=== PATIENT | female | born 1985 | race Caucasian/White ===

== ENCOUNTER 2018-07-05 17:19 | Emergency (ER) | payer MEDICAID ==
[~2018-07-05] VITALS: Ht 165.1 cm; Wt 72.6 kg
[2018-07-05 17:37] VITALS: BP 112/75
--- NOTE | 2018-07-05 17:43 | Emergency Room Report ---
History of Present Illness General Chief Complaint: Medication Refill Source: Patient Present Illness HPI 33-year-old female presents emergency department requesting medication refills for 3 of her psychiatric medications. Patient reports taking Vistaril, Abilify as well as Lovenox for her OCD. Patient reports she ran out of her medication 3 days ago. Patient reports that she is currently searching for a primary care provider as she had change in insurance/moving. Patient denies SI, HI, delusions, hallucinations, drug use, PSA or previous psych hospital admissions. Allergies: Coded Allergies: BENZODIAZEPINES (Verified Allergy, Unknown, 07/05/18) Patient History Past Medical History: see triage record, psych hx Past Surgical History: none Pertinent Family History: none Last Menstrual Period: 3 weeks ago Now: No Reviewed Nursing Documentation: PMH: Agreed; PSxH: Agreed Nursing Documentation-PMH Past Medical History: No History, Except For History Of Psychiatric Problem: Yes - OCD, anxiety Review of Systems All Other Systems: negative except mentioned in HPI Physical Exam Vital Signs Date Time Temp Pulse Resp B/P (MAP) Pulse Ox O2 Delivery O2 Flow Rate FiO2 07/05/18 17:37 98.7 76 16 112/75 98 Room Air 98.8 Sp02 EP Interpretation: reviewed, normal General Appearance: no apparent distress, alert, GCS 15, non-toxic Head: normocephalic, atraumatic ENT: hearing grossly normal, normal voice Neck: full range of motion Respiratory: lungs clear, normal breath sounds, speaking full sentences Cardiovascular #1: regular rate, rhythm Musculoskeletal: back normal, gait/station normal, normal range of motion, non- tender Neurologic: alert, oriented x3, responsive, motor strength/tone normal, sensory intact, normal gait, speech normal, grossly normal Psychiatric: judgement/insight normal, anxious Skin: normal color, no rash, warm/dry, well hydrated Lymphatic: no adenopathy Medical Decision Making PA Attestation Dr. Hoyos is my supervising physician whom pt. management has been discussed with. Diagnostic Impression: Primary Impression: Encounter for medication refill ER Course 33-year-old female presents emergency department requesting medication refills for 3 of her psychiatric medications. Patient reports taking Vistaril, Abilify as well as Lovenox for her OCD. Patient reports she ran out of her medication 3 days ago. Patient reports that she is currently searching for a primary care provider as she had change in insurance/moving. Patient denies SI, HI, delusions, hallucinations, drug use, PSA or previous psych hospital admissions. Ddx considered but are not limited to: drug seeking, OD, need for medication refill, acute psychosis Vital signs: are WNL, pt. is afebrile H&PE are most consistent with need for medication refill. ORDERS: none required at this time, the diagnosis is clinical ED INTERVENTIONS: None required at this time. DISCHARGE: At this time pt. is stable for d/c to home. Will provide printed patient care instructions, and any necessary prescriptions. Care plan and follow up instructions have been discussed with the patient prior to discharge. Last Vital Signs Date Time Temp Pulse Resp B/P (MAP) Pulse Ox O2 Delivery O2 Flow Rate FiO2 07/05/18 17:37 98.7 76 16 112/75 98 Room Air 98.8 Disposition: HOME, SELF-CARE Condition: Stable Scripts Fluvoxamine Maleate (FLUVOXAMINE MALEATE) 100 Mg Cap.er.24h 100 MG PO DAILY, #30 CAP Prov: Maine Humphrey 07/05/18 Hydroxyzine Pamoate (VISTARIL) 25 Mg Capsule 25 MG PO QHS, #30 CAP Prov: Maine Humphrey 07/05/18 Aripiprazole* (ABILIFY*) 2 Mg Tablet 2 MG ORAL DAILY, #30 TAB Prov: Maine Humphrey 07/05/18 Patient Instructions: Medicine Refill at the Emergency Department Additional Instructions: Take medications as directed. Follow up with a Primary Care Provider in 3-5 days, even if your symptoms have resolved. --Please review list of primary care clinics, if you do not already have a primary care provider Return sooner to ED if new symptoms occur, or current symptoms become worse. Do not drink alcohol, drive, or operate heavy machinery while taking Vistaril as this may cause drowsiness. - Please note that this Emergency Department Report was dictated using [employer] technology software, occasionally this can lead to erroneous entry secondary to interpretation by the dictation equipment. Maine Humphrey Jul 05, 2018 17:43
[2018-07-05] MEDS ORDERED: VISTARIL25 M1 PO ×2 (17:45→17:53)
[2018-07-05] MEDS ORDERED: FLUVOXAMINE MA100 M1 PO ×2 (17:45→17:53)
[2018-07-05] MEDS ORDERED: ABILIFY2 MG ORAL ×2 (17:45→17:53)
[2018-07-05 17:59] VITALS: BP 112/75
== END 2018-07-05 18:00 | disposition home or self-care (01) ==
LOC: EMR 17:45
DX: Z76.0 Encounter for issue of repeat prescription (principal); Z88.8 Allergy status to other drugs, medicaments and biological substances; F41.9 Anxiety disorder, unspecified; F42.9 Obsessive-compulsive disorder, unspecified
CPT/HCPCS: 99283

== ENCOUNTER 2018-12-02 13:52 | Emergency (ER) | payer MEDICAID, OTHER ==
[~2018-12-02] VITALS: Ht 167.6 cm; Wt 73.9 kg
[~2018-12-02 13:52] MED LIST: ABILIFY2 MG ORAL; FLUVOXAMINE MA100 M1 PO; VISTARIL25 M1 PO
[2018-12-02 14:00] VITALS: BP 96/45
[2018-12-02] MEDS ORDERED: PRAZOSIN HCL1 MG PO (14:03)
[2018-12-02] MEDS ORDERED: BUSPIRONE HCL7.5 MG ORAL (14:03)
--- NOTE | 2018-12-02 14:20 | Emergency Room Report ---
History of Present Illness General Chief Complaint: Syncope Source: Patient Present Illness HPI Patient presents with reports of lapse of consciousness 2 times Reports that just prior to arrival here a possibly 1:00 she found herself on the ground Patient reports that she had gotten up to go to the kitchen and found herself on the ground near medication denies any symptoms prior to that denies any lightheadedness denies any weakness denies any chest pain or shortness of breath Patient has stopped all of her medications abruptly recently Denies any nausea or vomiting patient also had pain to the right ankle And reports that this episode happened back to back twice with the lapse of consciousness Allergies: Coded Allergies: BENZODIAZEPINES (Verified Allergy, Unknown, 07/05/18) Patient History Past Medical History: see triage record Pertinent Family History: none Last Menstrual Period: 11/2018 Now: No Reviewed Nursing Documentation: PMH: Agreed; PSxH: Agreed Nursing Documentation-PMH Past Medical History: No Stated History Review of Systems All Other Systems: negative except mentioned in HPI Physical Exam Vital Signs Date Time Temp Pulse Resp B/P (MAP) Pulse Ox O2 Delivery O2 Flow Rate FiO2 12/02/18 13:58 97.5 74 20 111/71 97 Room Air Sp02 EP Interpretation: reviewed, normal General Appearance: well appearing, no apparent distress Head: normocephalic, atraumatic Eyes: bilateral eye PERRL, bilateral eye EOMI ENT: hearing grossly normal, normal pharynx, TMs + canals normal, uvula midline Neck: full range of motion, supple, no meningismus, no bony tend Respiratory: lungs clear, normal breath sounds, no rhonchi, no respiratory distress, no retraction, no accessory muscle use Cardiovascular #1: normal peripheral pulses, regular rate, rhythm, no edema, no gallop, no JVD, no murmur Gastrointestinal: normal bowel sounds, non tender, soft, no mass, no organomegaly, non-distended, no guarding, no hernia, no pulsatile mass, no rebound Genitourinary: no CVA tenderness Musculoskeletal: other - Some swelling to her right lateral ankle Neurologic: oriented x3, responsive, datapower developer III-XII nml as tested, motor strength/ tone normal, sensory intact Psychiatric: mood/affect normal Skin: normal color, palpation normal, other - As noted above Lymphatic: normal inspection, no adenopathy Procedures Splinting Splinting : Consent: Verbal Location: Right ankle Pre-Made Type: velcro Splint: sugar-tong Pre-Proc Neuro Vasc Exam: normal Post-Proc Neuro Vasc Exam: normal Patient Tolerated: Well Complications: None Medical Decision Making Diagnostic Impression: Primary Impression: Syncope Additional Impression: Ankle fracture ER Course Patient is a fairly complex patient with multiple differential to consideration including but not limited to cardiac cardiopulmonary and vascular emergencies Patient's blood work is appropriate liver function was very minimally elevated X-ray imaging does show fibular fracture nondisplaced Patient had splint applied At this time the urine sample does show some infectious pathology however appears somewhat contaminated On repeat discussion patient denies any urinary symptoms therefore we will be pending further culture prior to any antibiotics Patient also requires close orthopedic follow-up for her right ankle Given the lapse of consciousness DMV report is filed and patient is aware that she is not allowed to drive until cleared by her primary physician/neurologist And stable for close outpatient follow-up Labs Test 12/02/18 14:30 12/02/18 15:15 White Blood Count 4.5 K/UL (4.8-10.8) Red Blood Count 4.91 M/UL (4.20-5.40) Hemoglobin 14.3 G/DL (12.0-16.0) Hematocrit 43.2 % (37.0-47.0) Mean Corpuscular Volume 88 FL (80-99) Mean Corpuscular Hemoglobin 29.1 PG (27.0-31.0) Mean Corpuscular Hemoglobin Concent 33.1 G/DL (32.0-36.0) Red Cell Distribution Width 11.4 % (11.6-14.8) Platelet Count 230 K/UL (150-450) Mean Platelet Volume 7.2 FL (6.5-10.1) Neutrophils (%) (Auto) 68.1 % (45.0-75.0) Lymphocytes (%) (Auto) 23.2 % (20.0-45.0) Monocytes (%) (Auto) 7.7 % (1.0-10.0) Eosinophils (%) (Auto) 0.5 % (0.0-3.0) Basophils (%) (Auto) 0.6 % (0.0-2.0) Sodium Level 137 MMOL/L (136-145) Potassium Level 3.6 MMOL/L (3.5-5.1) Chloride Level 102 MMOL/L (98-107) Carbon Dioxide Level 25 MMOL/L (21-32) Anion Gap 10 mmol/L (5-15) Blood Urea Nitrogen 10 mg/dL (7-18) Creatinine 0.9 MG/DL (0.55-1.30) Estimat Glomerular Filtration Rate > 60 mL/min (>60) Glucose Level 111 MG/DL (74-106) Calcium Level 9.1 MG/DL (8.5-10.1) Total Bilirubin 0.6 MG/DL (0.2-1.0) Aspartate Amino Transf (AST/SGOT) 40 U/L (15-37) Alanine Aminotransferase (ALT/SGPT) 82 U/L (12-78) Alkaline Phosphatase 61 U/L (46-116) Total Creatine Kinase 54 U/L (26-308) Creatine Kinase MB < 0.5 NG/ML (0.0-3.6) Creatine Kinase MB Relative Index 0.9 Total Protein 7.5 G/DL (6.4-8.2) Albumin 4.0 G/DL (3.4-5.0) Globulin 3.5 g/dL Albumin/Globulin Ratio 1.1 (1.0-2.7) Urine Color Yellow Urine Appearance Clear Urine pH 5 (4.5-8.0) Urine Specific [place] 1.025 (1.005-1.035) Urine Protein 2+ (NEGATIVE) Urine Glucose (UA) Negative (NEGATIVE) Urine Ketones 4+ (NEGATIVE) Urine Blood 3+ (NEGATIVE) Urine Nitrite Negative (NEGATIVE) Urine Bilirubin Negative (NEGATIVE) Urine Urobilinogen 1 MG/DL (0.0-1.0) Urine Leukocyte Esterase 1+ (NEGATIVE) Urine RBC 5-10 /HPF (0 - 2) Urine WBC 2-4 /HPF (0 - 2) Urine Squamous Epithelial Cells Moderate /LPF (NONE/OCC) Urine Amorphous Sediment Few /LPF (NONE) Urine Bacteria Moderate /HPF (NONE) Urine HCG, Qualitative Negative (NEGATIVE) Urine Opiates Screen Negative (NEGATIVE) Urine Barbiturates Screen Negative (NEGATIVE) Phencyclidine (PCP) Screen Negative (NEGATIVE) Urine Amphetamines Screen Negative (NEGATIVE) Urine Benzodiazepines Screen Negative (NEGATIVE) Urine Cocaine Screen Negative (NEGATIVE) Urine Marijuana (THC) Screen Negative (NEGATIVE) EKG Diagnostic Results Rate: normal Rhythm: NSR ST Segments: no acute changes Rhythm Strip Diag. Results EP Interpretation: yes Rate: 60 Rhythm: NSR, no PVC's, no ectopy Other X-Ray Diagnostic Results Other X-Ray Diagnostic Results : X-Ray ordered: Right ankle # of Views/Limited Vs Complete: 3 View Indication: Pain EP Interpretation: Yes Interpretation: no dislocation, no soft tissue swelling, other - Fracture distal fibula Impression: Other - Acute fractue Electronically Signed by: Karina Crews DO Last Vital Signs Date Time Temp Pulse Resp B/P (MAP) Pulse Ox O2 Delivery O2 Flow Rate FiO2 12/02/18 13:58 97.5 74 20 111/71 97 Room Air Status: improved Disposition: HOME, SELF-CARE Condition: Improved Scripts Ibuprofen* (MOTRIN*) 600 Mg Tablet 600 MG ORAL Q8H PRN for For Pain, #20 TAB 0 Refills Prov: Karina Crews DO 12/02/18 Additional Instructions: Patient is provided with the discharge instructions notified to follow up with primary doctor in the next 2-3 days otherwise return to the er with any worsening symptoms. Please note that this report is being documented using [employer] technology. This can lead to erroneous entry secondary to incorrect interpretation by the dictating instrument. Karina Crews DO Dec 02, 2018 14:20
[2018-12-02 14:35] LABS: BASOPHILS % (AUTO) 0.6 % (0.0-2.0); EOSINOPHILS % (AUTO) 0.5 % (0.0-3.0); HEMATOCRIT 43.2 % (37.0-47.0); HEMOGLOBIN 14.3 G/DL (12.0-16.0); LYMPHOCYTES % (AUTO) 23.2 % (20.0-45.0); MEAN CORPUSCULAR VOLUME 88 FL (80-99); MONOCYTES % (AUTO) 7.7 % (1.0-10.0); NEUTROPHILS % (AUTO) 68.1 % (45.0-75.0); PLATELET COUNT 230 K/UL (150-450); RED BLOOD COUNT 4.91 M/UL (4.20-5.40); RED CELL DISTRIBUTION WIDTH 11.4 % (11.6-14.8); WHITE BLOOD COUNT 4.5 K/UL (4.8-10.8)
[2018-12-02 14:47] LABS: ANION GAP 10 mmol/L (5-15); BLOOD UREA NITROGEN 10 mg/dL (7-18); CALCIUM 9.1 MG/DL (8.5-10.1); CARBON DIOXIDE 25 MMOL/L (21-32); CHLORIDE 102 MMOL/L (98-107); CREATININE 0.9 MG/DL (0.55-1.30); POTASSIUM 3.6 MMOL/L (3.5-5.1); SODIUM 137 MMOL/L (136-145)
[2018-12-02 15:00] LABS: ALANINE AMINOTRANSFERASE 82 U/L (12-78); ALBUMIN/GLOBULIN RATIO 1.1 (1.0-2.7); ALKALINE PHOSPHATASE 61 U/L (46-116); ASPARTATE AMINO TRANSFERASE 40 U/L (15-37); BILIRUBIN,TOTAL 0.6 MG/DL (0.2-1.0); CKMB < 0.5 NG/ML (0.0-3.6); CREATINE KINASE 54 U/L (26-308)
[2018-12-02 15:40] LABS: APPEARANCE,URINE CLEAR; BILIRUBIN, URINE NEGATIVE (NEGATIVE); GLUCOSE, URINE (UA) NEGATIVE (NEGATIVE); KETONES,URINE 4+ (NEGATIVE); LEUKOCYTE ESTERASE ,URINE 1+ (NEGATIVE); NITRITE,URINE NEGATIVE (NEGATIVE); PH,URINE 5 (4.5-8.0); PROTEIN,URINE 2+ (NEGATIVE); UROBILINOGEN,URINE 1 MG/DL (0.0-1.0)
[2018-12-02 15:41] LABS: COLOR,URINE YELLOW
[2018-12-02 15:57] VITALS: BP 111/66
[2018-12-02] MEDS ORDERED: IBUPROFEN600 MG ORAL (16:09)
[2018-12-02 16:41] VITALS: BP 122/66
== END 2018-12-02 16:50 | disposition home or self-care (01) ==
LOC: EMR 14:35
DX: R55 Syncope and collapse (principal); S82.891A Other fracture of right lower leg, initial encounter for closed fracture; W19.XXXA Unspecified fall, initial encounter; Y92.000 Kitchen of unspecified non-institutional (private) residence as the place of occurrence of the external cause
CPT/HCPCS: 29515; 36415; 80053; 80307; 81003; 81025; 82550; 82553; 85025; 87086; 93005; 99284